=== PATIENT | male | born 1950 | race Caucasian/White ===

== ENCOUNTER 2022-03-18 19:32 | Emergency (ER) | payer OTHER, SELFPAY ==
[2022-03-18 19:50] VITALS: BP 190/105; PULSE 73; RESP 16; TEMP 37.1; O2SAT 97
[2022-03-18 20:09] VITALS: BP 160/92; PULSE 73; RESP 16; O2SAT 96
[2022-03-18 20:29] LABS: Abs Immature Grans 0.02 10^3/uL (0.0-0.06); Absolute Basophil Count 0.08 10^3/uL (0.0-0.2); Absolute Eosinophil Count 0.28 10^3/uL (0.0-0.7); Absolute Lymphocyte Count 1.05 10^3/uL (1.2-3.4); Absolute Neutrophil Count 5.48 10^3/uL (1.2-6.7); Eosinophils % 3.6; HCT 41.4 % (40.0-50.0); HGB 14.3 g/dL (13.5-17.5); Immature Grans % 0.3; Lymphocytes % 13.6; MCH 32.1 pg (27.0-33.0); MCHC 34.5 % (32.0-36.0); MCV 93 fL (80-95); MPV 9.6 fL (8.0-11.0); Monocytes % 10.4; Neutrophils % 71.1; Platelet Count 210 10^3/uL (130-400); RBC 4.46 10^6/uL (4.36-5.78); RDW 12.2 % (11.8-14.1); RDW-SD 41.9 fL; WBC 7.71 10^3/uL (4.4-10.8)
--- NOTE | 2022-03-18 20:31 | W.ED.GENAD ---
Discharge Plan Disposition Patient Disposition: HOME Discharge Details Clinical Impression: Abdominal pain Primary Care Provider: [facility] Provider: Henry Agustin Home Meds and New Rx's Prescriptions: No Action No Known Home Meds Discharge Instructions Instructions: Abdominal Pain (ED) Additional Instructions: Return tomorrow to the hospital for an ultrasound of your abdomen. We are concerned about your gallbladder. Meanwhile you need to eat a fat-free diet. Return to the emergency department if increased pain or fever. Discharge Data Discharge Date/Time-TO BE ENTERED AT DEPARTURE: 03/18/22 22:17 Medical Decision Making Demonstrated normal white count. Repeat exam did not reveal any abdominal discomfort. Increased LFTS. I am concerned that he may have gallbladder disease. Outpatient ultrasound was ordered. He will follow-up tomorrow. Plan discussed with the patient and his . Medical Records Medical records narrative: 71-year-old gentleman with right-sided flank pain that radiates to the front throughout the day. He thought it was a pulled muscle initially. Given that the pain was not getting better after dinner he decided come to the emergency department. Interestingly enough upon arrival to the emergency department in the triage room he became pain-free. Review of systems essentially negative. Work-up was initiated in triage. Will await results of blood and urine. HPI General Date/Time Provider Initiated Documentation: 03/18/22 20:26. HPI Narrative: 71-year-old gentleman who requested that his return to the emergency department tonight because he been having right flank pain that radiated around to the front throughout the day. 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 The pain was not subsiding after his day of work. Interestingly enough, in the triage room pain disappeared totally. When I see him he is asymptomatic. This pain was not associated with a fall, no trauma, no diarrhea, no constipation, no urinary symptoms. No nausea no vomiting. No diaphoresis. No chest pain. No cough. No respiratory symptoms. No associated fevers no chills. Related Data Home Medications Medication Instructions Recorded Confirmed Unknown [No Known Home Meds] 03/18/22 03/18/22 Allergies Allergy/AdvReac Type Severity Reaction Status Date / Time No Known Allergies Allergy Unverified 03/18/22 19:54 General Stated Complaint: Abd Prob SHAILESH: 3 Review of Systems Narrative: Constitutional negative for fever chills, negative for myalgias arthralgias HEENT negative Cardiovascular no chest pain or palpitations Respiratory no cough, no shortness of breath GI see HPI see HPI MSK no myalgias no arthralgias Skin no rashes Neuro no headaches no paresthesias no weakness Psych negative Endocrine no weight gain or weight loss Hematological not on blood thinners PFSH All Active Problems (Updated 03/18/22 @ 21:36 by Henry Agustin MD) Abdominal pain (Acute) Social History Smoking/Tobacco Use Status: Never Smoking risk assessment performed?: Yes Alcohol Intake: current Alcohol Intake frequency: 0-2 drinks per day Alcohol type: beer Drug use: Never Substance use type: does not use Do you feel safe in your relationship?: Yes Exam Narrative Exam Narrative: Awake alert [place] x3 calm no acute distress, pleasant cooperative left resting in the triage room. PERRLA EOMI MMM anicteric Chest is clear to auscultation bilaterally. Regular rhythm and rate Abdomen soft nondistended nontender no CVAT. Back no rashes Skin no rashes normal color normal cap refill Neuro grossly intact Extremities full range of motion. No edema normal mood and affect. Course Vital Signs Vital signs: Vital Signs Temperature 37.1 C 03/18/22 19:50 Pulse 73 03/18/22 19:50 Respiratory Rate 16 03/18/22 19:50 Blood Pressure 190/105 H 03/18/22 19:50 Pulse Oximetry 97 03/18/22 19:50 Temperature 37.1 C 03/18/22 19:50 Temperature Source Oral 03/18/22 19:50 Pulse 73 03/18/22 20:09 Respiratory Rate 16 03/18/22 20:09 Respiratory Effort Non-Labored 03/18/22 19:54 Blood Pressure 160/92 H 03/18/22 20:09 Pulse Oximetry 96 03/18/22 20:09 Pain Level 0 03/18/22 20:09 Lab/Test Results Lab/Test Results: Laboratory Tests Range/Units 03/18/22 20:17 WBC (4.4-10.8) 10^3/uL 7.71 RBC (4.36-5.78) 10^6/uL 4.46 Hgb (13.5-17.5) g/dL 14.3 Hct (40.0-50.0) % 41.4 MCV (80-95) fL 93 MCH (27.0-33.0) pg 32.1 MCHC (32.0-36.0) % 34.5 RDW (11.8-14.1) % 12.2 Plt Count (130-400) 10^3/uL 210 MPV (8.0-11.0) fL 9.6 Immature Gran % 0.3 Neutrophils % 71.1 Lymphocytes % 13.6 Monocytes % 10.4 Eosinophils % 3.6 Basophils % 1.0 Nucleated RBC % (0.0-0.3) % 0.0 Absolute Neutrophils (1.2-6.7) 10^3/uL 5.48 Absolute Lymphocytes (1.2-3.4) 10^3/uL 1.05 L Absolute Monocytes (0.1-0.8) 10^3/uL 0.80 Absolute Eosinophils (0.0-0.7) 10^3/uL 0.28 Absolute Basophils (0.0-0.2) 10^3/uL 0.08 PAWSS Have you Been Recently Intoxicated or Drunk Within the Last 30 days?: No Have you Ever Experienced Previous Episodes of Alcohol Withdrawal?: No Have you ever Experienced Withdrawal Seizures?: No Have you ever Experienced Delirium Tremens(DT)s?: No Have you ever undergone Alcohol Rehabilitation Treatment (i.e, inpt ot outpatient treatment programs)?: No Have you ever Experienced Blackouts?: No Have you ever Combined Alcohol with other Downers within the last 90 days?: No Have you ever Combined Alcohol with any other Substance of Abuse during the last 90 days?: No Positive Blood Alcohol level on Presentation? [PCS.BAL]: No Evidence of Increased Autonomic Activity (i.e. HR>120, tremor, sweating, agitation, nausea)?: No Result: 0
[2022-03-18 20:42] LABS: ALT 161 U/L (16-63); AST 347 U/L (15-37); Albumin 3.7 g/dL (3.4-5.0); Alkaline Phosphatase 124 U/L (46-116); BUN 6 mg/dL (7-18); Bilirubin, Total 2.6 mg/dL (0.2-1.0); CREATININE 0.9 mg/dL (0.70-1.30); Calcium 8.5 mg/dL (8.5-10.1); Chloride 99 mmol/L (98-107); Glucose 117 mg/dL (74-106); Potassium 3.9 mmol/L (3.5-5.1); Sodium 133 mmol/L (136-145); Total Protein 7.2 g/dL (6.4-8.2)
[2022-03-18 20:50] LABS: Bilirubin Small (Negative); Blood Negative (Negative); Clarity Clear (Clear); Glucose Negative (Negative); Ketones Trace mg/dL (Negative); Leukocyte Esterase Negative (Negative); Nitrite Negative (Negative); Specific Gravity 1.025 (1.005-1.025); Urobilinogen 0.2 EU/dL (Up TO 0.2)
[2022-03-18 22:16] VITALS: BP 157/89; PULSE 71; RESP 16; O2SAT 97
== END 2022-03-18 22:17 | disposition home or self-care (01) ==
PROVIDERS: Emergency Provider Emergency Medicine
DX: R10.9 Unspecified abdominal pain (principal); R79.89 Other specified abnormal findings of blood chemistry
CPT/HCPCS: 80053; 99282; 81003; 85025; 99283

== ENCOUNTER → 2022-03-21 01:15 | Outpatient (CLI) | payer MEDICARE, SELFPAY ==
--- NOTE | 2022-03-21 09:20 | DI.US_ITS ---
Exam(s) US ABDOMEN LIMITED EXAM: US ABDOMEN LIMITED CLINICAL HISTORY: RUQ pain x 10 days, Elevated LFTs, Normal CBCs TECHNIQUE: Ultrasound abdomen performed using standard protocol. COMPARISON: No exams were available for comparison FINDINGS: There is no ascites evident. LIVER: Hyperechoic indicating steatosis. Upper normal size. GALLBLADDER/BILIARY: Gallbladder lumen is packed full of numerous small calculi. Gallbladder wall is slightly thickened (4 millimeters). There is no pericholecystic fluid. The common hepatic duct isnot dilated, measuring 5mm at the level of keyana hepatis. PANCREAS: There is no evidence of pancreatic mass nor dilatation of the pancreatic duct. RIGHT KIDNEY:No evidence of solid mass, calculus, nor hydronephrosis. No cortical cysts evident. IMPRESSION: 1. Cholelithiasis. There are multiple small gallstones filling the entire gallbladder lumen. Gallb ladder wall is slightly thickened. There is no pericholecystic fluid. The common hepatic duct is no t dilated. 2. Hepatic steatosis noted. 3. There is no ascites. DATA REPOSITORY:
== END ==
PROVIDERS: Visit Provider Emergency Medicine
DX: R10.11 Right upper quadrant pain (principal); R79.89 Other specified abnormal findings of blood chemistry; K76.0 Fatty (change of) liver, not elsewhere classified; K80.20 Calculus of gallbladder without cholecystitis without obstruction
CPT/HCPCS: 76705

== ENCOUNTER 2022-03-21 09:30 | Emergency (ER) | payer MEDICARE, SELFPAY ==
[2022-03-21 09:32] VITALS: BP 178/89; PULSE 72; RESP 16; TEMP 36.6; O2SAT 98
--- NOTE | 2022-03-21 09:48 | ED.GENADUL_ITS ---
Discharge Plan Disposition Patient Disposition: HOME Condition: Improving Discharge Details Clinical Impression: Gallstones [facility] Provider: Hank Mccord Home Meds and New Rx's Prescriptions: Continued multivitamin Tablet 1 tab PO DAILY Discharge Instructions Instructions: Gallstones (ED) Additional Instructions: As we discussed your blood work should be repeated including liver function tests. Please follow-up with the [facility] as you have planned. Your ultrasound today showed gallstones with a thickened gallbladder wall at 4 mm. There was no fluid surrounding the gallbladder and no evidence of active infection. As we discussed, we are happy to refer you to our outpatient surgery clinic for consultation, but you may certainly [facility] the [facility]. For any questions please call [phone] and ask for the transitional care nurse. Avoid fatty or fried foods and heavy meat based meals. Return if develop a fever, persistent pain or vomiting, or any other acute concerns. Medical Decision Making 71-year-old male who was seen in the emergency department on March 18 with presentation suspicious for biliary colic. He returned this morning for outpatient right upper quadrant ultrasound. This revealed gallbladder stones with a thickened wall of approximately 4 mm. There was no pericallosal fluid, normal common bile duct. Patient states his pain is improving he has been feeling well. Discussed with him referral for outpatient surgical consultation. He requested he and his perform this through their [facility] contacts. Discussed with him avoidance of fatty food and to seek reevaluation. HPI General Mode of arrival: ambulatory . Date/Time Provider Initiated Documentation: 03/21/22 09:31 . Limitations to Documentation: no limitations . Information obtained by: patient and family . History of Present Illness 71 year old M presents to the emergency department with the chief complaint of Here for ultrasound result, no pain, and it has been now resolved. No relieving factors improve symptom(s), No exacerbating factors reported . Patient did receive the following treatments prior to arrival, none Related Data Home Medications Medication Instructions Recorded Confirmed multivitamin 1 tab PO DAILY 03/21/22 03/21/22 Allergies Allergy/AdvReac Type Severity Reaction Status Date / Time No Known Allergies Allergy Unverified 03/18/22 19:54 General Stated Complaint: Recheck SHAILESH: 5 Review of Systems Narrative: No fever, no abdominal pain, no vomiting, feels well and improved. No change to urine. 6 systems reviewed and otherwise negative [facility] All Active Problems (Updated 03/21/22 @ 09:51 by Hank Mccord MD) Abdominal pain (Acute) Gallstones (Acute) Social History Smoking/Tobacco Use Status: Never Smoking risk assessment performed?: Yes Alcohol Intake: current Alcohol Intake frequency: 0-2 drinks per day Alcohol type: beer Drug use: Never Substance use type: does not use Do you feel safe at home: Yes Do you feel safe in your relationship?: Yes Exam Narrative Exam Narrative: GEN: awake, alert, oriented 3. Pleasant, well groomed, interactive. HEAD: Normocephalic, atraumatic EYES: PERRL, EOMI NECK: Full ROM, no VIGNESH, no menigismus CHEST/RESP: No respiratory distress EXT: Full ROM Neuro: Grossly normal neurologic exam, conversant, interactive. Psych: Speech fluent, thoughts congruent, affect normal Course Vital Signs Vital signs: Vital Signs Temperature 36.6 C 03/21/22 09:32 Pulse 72 03/21/22 09:32 Respiratory Rate 16 03/21/22 09:32 Blood Pressure 178/89 H 03/21/22 09:32 Pulse Oximetry 98 03/21/22 09:32 Temperature 36.6 C 03/21/22 09:32 Temperature Source Temporal Artery Scan 03/21/22 09:32 Pulse 72 03/21/22 09:32 Respiratory Rate 16 03/21/22 09:32 Respiratory Effort 03/21/22 09:34 Blood Pressure 178/89 H 03/21/22 09:32 Blood Pressure Position Supine 03/21/22 09:32 Pulse Oximetry 98 03/21/22 09:32 Oxygen Delivery Method Room Air 03/21/22 09:32 Oxygen Flow Rate 0 03/21/22 09:32 Pain Level 0 03/21/22 09:32
== END 2022-03-21 09:55 | disposition home or self-care (01) ==
PROVIDERS: Emergency Provider Emergency Medicine
DX: K80.80 Other cholelithiasis without obstruction (principal)